=== PATIENT | male | born 1985 | race American Indian/Alaskan Native ===

== ENCOUNTER 2019-03-18 06:36 | Emergency (ER) | payer OTHER ==
[2019-03-18 06:42] VITALS: BP 128/90
--- NOTE | 2019-03-18 07:14 | XRay Report ---
PROCEDURE: XR SHOULDER 2+V RT TECHNIQUE: 3 views of the right shoulder were obtained. HISTORY: pain and swelling COMPARISONS: None FINDINGS: There is minimal periarticular spurring along the superior margin of the AC joint. The glenohumeral j oint appears normal. The subacromial space appears normal. There is no evidence of fracture. The soft tissues are well-maintained. IMPRESSION: Minimal periventricular spurring along the superior margin of the AC joint. No acute findings.. This document is electronically signed by Volodymyr Chacko MD., Mar 18 2019 07:12:22 AM ET
[2019-03-18] MEDS ORDERED: IBUPROFEN PO ONE (07:27)
--- NOTE | 2019-03-18 07:31 | Emergency Department Report ---
ED Upper Extremity Inj HPI - General Chief Complaint: Extremity Injury, Upper Stated Complaint: RIGHT SHOULDER PAIN Time Seen by Provider: 03/18/19 07:07 Source: patient, family Mode of arrival: Ambulatory Limitations: No Limitations - History of Present Illness Initial Comments: Is a 33-year-old male who comes to the ER with right shoulder pain. He states the pain feels like it is deep in his joint. He still describes it as a swelling in his joints. 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 He states that this movement makes the shoulder hurt. He states that in mobility makes it feel better. He has done nothing for it at home. He denies any injury. He states that he would like a work note stating that he cannot do dumpster duty. Complaint: Injury to:: right -: Gradual, week(s) Handedness: right Place: work Context: other Associated Symptoms: denies other symptoms - Related Data Allergies Allergy/AdvReac Type Severity Reaction Status Date / Time No Known Allergies Allergy Verified 03/18/19 06:42 ED Review of Systems ROS: Stated complaint: RIGHT SHOULDER PAIN Other details as noted in HPI Comment: All other systems reviewed and negative Constitutional: denies: fever Musculoskeletal: as per HPI. denies: joint swelling, arthralgia Skin: denies: rash, lesions ED Past Medical Hx - Past Medical History Previous Medical History?: No - Surgical History Past Surgical History?: No - Family History Family history: no significant - Social History Smoking Status: Never Smoker Substance Use Type: Marijuana ED Physical Exam - General Limitations: No Limitations General appearance: alert - Head Head exam: Present: normocephalic - Eye Eye exam: Present: normal appearance - ENT ENT exam: Present: mucous membranes moist - Neck Neck exam: Present: normal inspection - Respiratory Respiratory exam: Present: normal lung sounds bilaterally - Cardiovascular Cardiovascular Exam: Present: regular rate - GI/Abdominal GI/Abdominal exam: Present: soft - Rectal Rectal exam: Present: deferred - Expanded Upper Extremity Exam Right Shoulder Exam: Present: full ROM. Absent: tenderness, swelling, abrasion, laceration, ecchymosis, deformity, crepidus, dislocation, erythema, tenderness over AC joint Upper Arm exam: Present: normal inspection Elbow exam: Present: normal inspection Forearm Wrist exam: Present: normal inspection Hand Wrist exam: Present: normal inspection Neurosensory exam: Present: radial nerve intact, ulnar nerve intact, median nerve intact Vascular: Present: radial pulse, brachial pulse, ulnar pulse - Back Exam Back exam: Present: normal inspection - Neurological Exam Neurological exam: Present: alert, oriented X3 - Psychiatric Psychiatric exam: Present: normal affect, normal mood ED Course Vital Signs 03/18/19 06:38 Temperature 98.0 F Pulse Rate 61 Respiratory 18 Rate Blood Pressure 128/90 O2 Sat by Pulse 98 Oximetry ED Medical Decision Making - Radiology Data Radiology results: report reviewed, image reviewed NO FX/ DISLOCATION/ SEPARATION - Medical Decision Making XRAY NEG FOR FX OR DISLOCATION FULL ROM NEUROVASC INTACT NO DIRECT BLOW TO SHOULDER SUCH FALL RAPID CAP REFILL NO SPINE TENDERNESS NO FEVER DISCUSSED [facility] RICE TREATMENT AND ORTHO FOLLOW UP Vital Signs 03/18/19 06:38 Temperature 98.0 F Pulse Rate 61 Respiratory 18 Rate Blood Pressure 128/90 O2 Sat by Pulse 98 Oximetry - Differential Diagnosis RO DISLOCATION, AC SEP, V SOFT TISSUE INJURY Critical care attestation.: If time is entered above; I have spent that time in minutes in the direct care of this critically ill patient, excluding procedure time. ED Disposition Clinical Impression: Shoulder pain, right Disposition: DC-01 TO HOME OR SELFCARE Is pt being admited?: No Does the pt Need Aspirin: No Condition: Stable Instructions: Shoulder Sprain (ED) Additional Instructions: ICE REST MOTRIN 800 MG EVERY 8 HOURS WITH FOOD FOR PAIN FOLLOW UP ORTHO REFERRAL BELOW [facility] [facility] WE DISCUSSED Referrals: RUFINO HYDE MD [Staff Physician] - 3-5 Days Forms: Work/School Release Form(ED) Time of Disposition: 07:31
== END 2019-03-18 07:52 | disposition home or self-care (01) ==
LOC: ED 06:36
DX: M25.511 Pain in right shoulder (principal); F12.10 Cannabis abuse, uncomplicated

== ENCOUNTER 2020-01-01 08:12 | Emergency (ER) | payer SELFPAY ==
[2020-01-01 08:25] VITALS: BP 138/91
[2020-01-01] MEDS ORDERED: dexAMETHasone 20 MG/5 ML VIAL IM ONE (10:08)
--- NOTE | 2020-01-01 10:12 | Emergency Department Report ---
ED Rash HPI - [facility] Chief Complaint: Allergic Reaction Stated Complaint: ALLERGIC REACTION Time Seen by Provider: 01/01/20 10:07 Duration: 2 weeks Location: Chest, Back Suspected Cause: Other (Soap) Rash Symptoms: Yes Itching, No Facial Swelling, No Tongue/Oral Swelling, No Breathing Difficulties, No Choking Sensation, No Wheezing/Dyspnea, No Peeling, No Blistering, No Fever, No Lightheaded, No Malaise Severity: moderate Other History: This is a 34-year-old male who presents the ED complaining of rash and itching to his arms and chest for the past week and a half. Patient is been taking Benadryl and Malinda for the past week with no relief to the rash. Patient states symptoms started after using Dial soap which is a new soap for him. Patient states he stopped using the soap shortly after experiencing the rash. He denies difficulty breathing, throat swelling, chest pain, shortness of breath patient denies any history of ED Review of Systems ROS: Stated complaint: ALLERGIC REACTION Other details as noted in HPI ED Past Medical Hx - Past Medical History Previous Medical History?: No - Surgical History Past Surgical History?: No - Social History Smoking Status: Never Smoker - Medications Home Medications: Home Medications Medication Instructions Recorded Confirmed Last Taken Type Amoxicillin [Trimox CAP] 500 mg PO Q8H #7 capsule 07/08/19 Unknown Rx Nystas/Diphen/Xyl Visc/Mylanta 15 ml MM Q6H PRN #120 ml 07/08/19 Unknown Rx [Magic Mouthwash] hydrOXYzine HCL [Atarax] 25 mg PO QHS PRN #20 tablet 01/01/20 Unknown Rx Rash Exam - Exam General: Vital signs noted. No distress. Alert and acting appropriately. ED Course Vital Signs 01/01/20 08:20 Temperature 98.1 F Pulse Rate 95 H Respiratory 18 Rate Blood Pressure 138/91 O2 Sat by Pulse 100 Oximetry ED Medical Decision Making - Medical Decision Making This 34-year-old male who presents with acute allergic dermatitis for the past week. Patient is in no acute or respiratory distress. Vital signs are normal Discussed with patient to follow-up with primary care physician in 3 to 5 days. Patient's airways were patent patient had no difficulty breathing or any anaphylaxis reaction. Patient did state that he has stopped using the Dial soap which has helped with some of the symptoms from present. Discussed cool showers and not hot showers which usually makes itching worse. Atarax given at discharge. Discussed with patient to continue using a topical corticosteroid which he has. Critical care attestation.: If time is entered above; I have spent that time in minutes in the direct care of this critically ill patient, excluding procedure time. ED Disposition Clinical Impression: Allergic dermatitis, Hives Disposition: TO HOME OR SELFCARE Is pt being admited?: No Does the pt Need Aspirin: No Condition: Stable Instructions: Urticaria (ED), Contact Dermatitis (ED) Additional Instructions: Make sure to follow up with the primary care physician as discussed. Take all your medications as you've been prescribed. If you have any worsening symptoms or develop new symptoms please return to ED immediately. Prescriptions: hydrOXYzine HCL [Atarax] 25 mg PO QHS PRN #20 tablet PRN Reason: Itching Referrals: [facility] [Outside] - 3-5 Days [facility] [Outside] - 3-5 Days Forms: Accompanied Note, Work/School Release Form(ED) Time of Disposition: 10:38
== END 2020-01-01 10:58 | disposition home or self-care (01) ==
LOC: ED 08:12
DX: L23.9 Allergic contact dermatitis, unspecified cause (principal); L50.9 Urticaria, unspecified
CPT/HCPCS: 96372; 99282; J1100

== ENCOUNTER 2021-05-24 10:30 | Emergency (ER) | payer SELFPAY ==
[2021-05-24 11:55] VITALS: BP 116/82
== END 2021-05-24 12:45 ==
LOC: ED 10:30
DX: M25.511 Pain in right shoulder (principal); Z53.21 Procedure and treatment not carried out due to patient leaving prior to being seen by health care provider